=== PATIENT | female | born 1995 | race Two or more races ===

== ENCOUNTER 2024-03-05 19:47 | Outpatient (CLI) | payer OTHER | END 2024-03-05 23:59 | disposition critical access hospital (66) | LOC: EMS 19:47 | DX: R19.7 Diarrhea, unspecified (principal); R10.84 Generalized abdominal pain; R10.817 Generalized abdominal tenderness; M54.9 Dorsalgia, unspecified; R07.81 Pleurodynia; R11.10 Vomiting, unspecified; R00.0 Tachycardia, unspecified; R06.82 Tachypnea, not elsewhere classified | CPT/HCPCS: A0425; A0429 ==

== ENCOUNTER 2024-03-05 20:08 | Emergency (ER) | payer OTHER ==
[2024-03-05 20:23] LABS: BASOPHILS % (AUTO) 0.2 %; EOSINOPHILS % (AUTO) 0.1 %; HCT - HEMATOCRIT 41.1 % (37.0-47.0); HGB - HEMOGLOBIN 13.9 g/dL (12.0-16.0); LYMPHOCYTES # (AUTO) 0.4 10^3/uL (1.5-3.5); LYMPHOCYTES % (AUTO) 3.5 %; MEAN CORPUSCULAR HEMOGLOBIN 30.1 pg (27.0-31.0); MEAN CORPUSCULAR HGB CONC 33.8 g/dL (32.0-36.0); MEAN PLATELET VOLUME 11.5 fL (7.9-10.8); MONOCYTES # (AUTO) 0.2 10^3/uL (0.0-1.0); MONOCYTES % (AUTO) 2.2 %; NEUTROPHILS # (AUTO) 10.1 10^3/uL (1.5-6.6); NEUTROPHILS % (AUTO) 93.7 %; PLT - PLATELET COUNT 135 10^3/uL (130-450); RED BLOOD COUNT 4.62 10^6/uL (4.20-5.40); RED CELL DISTRIBUTION WIDTH 12.4 % (12.0-15.0); WHITE BLOOD COUNT 10.8 x10^3/uL (4.8-10.8)
[2024-03-05 20:44] LABS: ALBUMIN 4.1 g/dL (3.2-5.5); ALBUMIN/GLOBULIN RATIO 1.7 (1.0-2.2); BILIRUBIN,TOTAL 0.5 mg/dL (0.2-1.0); CREATININE 0.8 mg/dL (0.6-1.3); POTASSIUM 3.5 mmol/L (3.5-4.5); TOTAL PROTEIN 6.5 g/dL (6.4-8.9)
[2024-03-05] MEDS: ONDANSETRON 4 MG/2 ML VIAL IVP STA (22:31)
[2024-03-05] MEDS: SODIUM CHLORIDE 0.9% 1,000 ML IV STA (22:31)
[2024-03-05] MEDS: MORPHINE 2 MG/ML CARPUJECT IVP STA (22:32)
[2024-03-05 23:56] LABS: BILIRUBIN,URINE NEGATIVE (NEGATIVE); GLUCOSE, URINE (UA) NEGATIVE (NEGATIVE); KETONES,URINE (UA) 15 mg/dL (NEGATIVE); LEUKOCYTE ESTERASE, URINE NEGATIVE (NEGATIVE); NITRITE,URINE NEGATIVE (NEGATIVE); OCCULT BLOOD,URINE NEGATIVE (NEGATIVE); PROTEIN,URINE NEGATIVE (NEGATIVE); UROBILINOGEN,URINE 0.2 (NORMAL) E.U./dL (NORMAL)
[2024-03-05 23:58] LABS: CLARITY,URINE CLEAR (CLEAR)
[2024-03-05 23:59] LABS: BACTERIA,URINE Rare /HPF (None Seen); RBC,URINE None Seen /HPF (0-5); SQUAMOUS EPITHELIAL CELL,UR RARE Squamous (<= Few); WBC,URINE 0-3 /HPF (0-5)
--- NOTE | 2024-03-06 00:15 | ED Physician Documentation ---
History of Present Illness - Stated complaint Stated Complaint: ABD PX/N/V - Chief complaint Chief Complaint: Abd Pain - Additonal information Additional information: 29-year-old female presents nausea vomiting abdominal pain. Began shortly after eating at local seafood restaurant. No other known sick contacts. Denies blood in vomitus. Endorses for positive diarrhea. Review of Systems Constitutional: denies: Fever Eyes: denies: Loss of vision Ears: denies: Loss of hearing Nose: denies: Rhinorrhea / runny nose Throat: denies: Dental pain / toothache Cardiac: denies: Chest pain / pressure GI: reports: Abdominal Pain, Nausea, Vomiting, Diarrhea PD PAST MEDICAL HISTORY - Past Medical History Past Medical History: No - Past Surgical History Past Surgical History: No - Present Medications Home Medications: Ambulatory Orders Medication Instructions Recorded Confirmed Ondansetron Odt [Zofran] 4 mg TL Q6H PRN #10 tablet 03/06/24 - Allergies Allergies/Adverse Reactions: Allergies Allergy/AdvReac Type Severity Reaction Status Date / Time No Known Drug Allergies Allergy Verified 03/05/24 20:12 - Social History Does the pt smoke?: No Smoking Status: Never smoker PD ED PE NORMAL - General General: Alert and oriented X 3, No acute distress, Well developed/nourished - HEENT HEENT: Atraumatic, PERRL, EOMI, Ears normal, Moist mucous membranes, Pharynx benign - Neck Neck: Supple, no meningeal sign, No bony TTP, No adenopathy, Thyroid normal, No JVD - Cardiac Cardiac: RRR, No gallop, Strong equal pulses - Respiratory Respiratory: No respiratory distress, Clear bilaterally - Abdomen Abdomen: Normal bowel sounds, Non tender, No organomegaly - Female Female : Deferred - Rectal Rectal: Deferred - Back Back: No CVA TTP Results - Vitals Vitals: Vital Signs - 24 hr 03/05/24 03/05/24 03/05/24 20:10 20:13 22:00 Temperature 36.9 C Heart Rate 108 H 100 77 Respiratory 18 18 Rate Blood Pressure 121/84 H 103/83 H O2 Saturation 100 93 Oxygen O2 Source Room air - Labs Labs: Laboratory Tests 03/05/24 03/05/24 03/05/24 20:17 20:17 23:32 WBC 10.8 RBC 4.62 Hgb 13.9 Hct 41.1 MCV 89.0 MCH 30.1 MCHC 33.8 RDW 12.4 Plt Count 135 MPV 11.5 H Neut # (Auto) 10.1 H Lymph # (Auto) 0.4 L Mcduffie # (Auto) 0.2 Eos # (Auto) 0.0 Baso # (Auto) 0.0 Absolute Nucleated RBC 0.00 Nucleated RBC % 0.0 Sodium 136 Potassium 3.5 Chloride 103 Carbon Dioxide 27 Anion Gap 6.0 BUN 13 Creatinine 0.8 Estimated GFR (MDRD) 85 L Glucose 113 H Calcium 9.0 Total Bilirubin 0.5 AST 74 H ALT 48 Alkaline Phosphatase 63 Total Protein 6.5 Albumin 4.1 Globulin 2.4 Albumin/Globulin Ratio 1.7 Lipase 24 Urine Color YELLOW Urine Clarity CLEAR Urine pH 7.0 Ur Specific Horace <=1.005 Urine Protein NEGATIVE Urine Glucose (UA) NEGATIVE Urine Ketones 15 H Urine Occult Blood NEGATIVE Urine Nitrite NEGATIVE Urine Bilirubin NEGATIVE Urine Urobilinogen 0.2 (NORMAL) Ur Leukocyte Esterase NEGATIVE Urine RBC None Seen Urine WBC 0-3 Ur Squamous Epith Cells RARE Squamous Urine Bacteria Rare Urine Culture Comments NOT INDICATED PD Medical Decision Making - ED course Complexity details: reviewed results, d/w patient ED course: 29-year-old female presents with nausea vomiting diarrhea. Afebrile, he medically stable on arrival to the emergency department. She endorsed primarily for epigastric abdominal pain. Her lipase is normal there is no indications pancreatitis. Her abdominal exam is benign, no right upper quadrant tenderness that would be suggestive of cholecystitis or other intra-abdominal infections. Etiology likely relates to either acute food poisoning versus early gastroenteritis. Discussed both possibilities with patient. Provided medication for symptomatic management and encourage careful follow-up with primary care or prompt return to the emergency department for new worsening or on remitting symptoms. Departure - Departure Disposition: 01 Home, Self Care Clinical Impression: Vomiting Qualifiers: Vomiting type: unspecified Nausea presence: with nausea Qualified Code(s): R11.2 - Nausea with vomiting, unspecified Diarrhea Qualifiers: Diarrhea type: unspecified type Qualified Code(s): R19.7 - Diarrhea, unspecified Instructions: ED Nausea Vomiting Prescriptions: Ondansetron Odt [Zofran] 4 mg TL Q6H PRN #10 tablet PRN Reason: Nausea / Vomiting Comments: Thank you for allowing us to care for you today at [facility]. Today in the emergency department you were evaluated for any possible dangerous or life-threatening medical emergency. The testing performed in the emergency department today including your lab work was very reassuring. I written prescriptions for some antinausea medication to take at home. You are also provided with some medication for pain and nausea for the next 1 to 2 days. Your symptoms should be slowly but steadily improving over the course of the next 1 to 2 days. If you have any new or worsening symptoms or if you are not noting improvement in your symptoms over the next few days please either follow- up with your primary care doctor or return to the emergency department.
[2024-03-06] MEDS: oxyCODONE/ACET 5/325 Prepack 4 PO STA (00:23)
[2024-03-06] MEDS: ONDANSETRON ODT 4 MG Prepack 2 TL PRN (00:23)
[2024-03-06 00:33] VITALS: BP 105/82; O2SAT 98
== END 2024-03-06 00:32 | disposition home or self-care (01) ==
LOC: ED 20:08
DX: R11.2 Nausea with vomiting, unspecified (principal); R19.7 Diarrhea, unspecified; R10.13 Epigastric pain
CPT/HCPCS: 36415; 80053; 81001; 83690; 85025; 96374; 99283; 99284; A9270; 87086